=== PATIENT | female | born 1980 | race American Indian/Alaskan Native ===

== ENCOUNTER 2020-01-28 18:00 | Emergency (ER) | payer SELFPAY ==
[2020-01-28] MEDS ORDERED: IBUPROFEN 600 MG TAB PO ONE (18:24)
[2020-01-28] MEDS ORDERED: LIDOCAINE (2%) 20 MG/1 ML VIAL 20 ML MDV INFILTRATI ONE ×2 (18:24→21:32)
--- NOTE | 2020-01-28 18:24 | Event Note ---
ED Screening Note ED Screening Note: large abscess back of neck needs I/D tachy in triage- low grade fever ro sepsis pmh htn on hctz This initial assessment/diagnostic orders/clinical plan/treatment(s) is/are subject to change based on patients health status, clinical progression and re- assessment by fellow clinical providers in the ED. Further treatment and workup at subsequent clinical providers discretion. Patient/guardian urged not to elope from the ED as their condition may be serious if not clinically assessed and managed. Initial orders include: I/D IV fluids/rocephin basic labs
[2020-01-28] MEDS ORDERED: SODIUM CHLORIDE 0.9% 1000 ML 1,000 ML IV ONE (18:25)
[2020-01-28] MEDS ORDERED: cefTRIAXone/NS 1 GM/50 ML 1 GM/50 ML BAG IV ONE (18:25)
[2020-01-28 19:12] LABS: Basophils % (Auto) 0.4 % (0.0-1.8); Eosinophils # (Auto) 0.1 K/mm3 (0.0-0.4); Eosinophils % (Auto) 0.4 % (0.0-4.3); Hematocrit 41.6 % (30.3-42.9); Hemoglobin 13.1 gm/dl (10.1-14.3); Lymphocytes # (Auto) 0.8 K/mm3 (1.2-5.4); Lymphocytes % (Auto) 6.7 % (13.4-35.0); Mean Corpuscular HGB Conc 32 % (30-34); Mean Corpuscular Volume 82 fl (79-97); Monocytes # (Auto) 0.7 K/mm3 (0.0-0.8); Monocytes % (Auto) 5.5 % (0.0-7.3); Platelet Count 340 K/mm3 (140-440); Red Blood Count 5.11 M/mm3 (3.65-5.03); Red Cell Distribution Width 17.6 % (13.2-15.2)
[2020-01-28 19:16] LABS: BUN/Creatinine Ratio 13; Blood Urea Nitrogen 10 mg/dL (7-17); Calcium 9.6 mg/dL (8.4-10.2); Hemolysis Index 13
[2020-01-28] MEDS ORDERED: MORPHINE 4 MG/1 ML INJ IV ONE (19:56)
[2020-01-28] MEDS ORDERED: KETOROLAC 30 MG/1 ML INJ IV ONE (19:56)
[2020-01-28] MEDS ORDERED: SODIUM CHLORIDE 0.9% 1000 ML 2,000 ML IV ONE (19:56)
[2020-01-28] MEDS ORDERED: ACETAMINOPHEN 325 MG TAB PO ONE (19:57)
--- NOTE | 2020-01-28 19:58 | Emergency Department Report ---
ED General Adult HPI - General Chief complaint: Skin/Abscess/Foreign Body Stated complaint: LFT SIDE NECK KNOT/PAIN Time Seen by Provider: 01/28/20 18:24 Source: patient, RN notes reviewed Mode of arrival: Ambulatory Limitations: No Limitations - History of Present Illness Initial comments: The patient is a 39-year-old female. She is not known to myself previously. She is quite certain that she is not . She denies coronavirus symptoms. She presents to the ER today with a complaint of left posterior paramidline skin swelling, pain, suspicious for abscess. She states that she developed a skin bump a few weeks ago. She was reluctant to come in and seek emergency medical attention secondary to the current coronavirus situation. She reports that she had leftover antibiotics from a dental infection, she took these antibiotics which somewhat improved her pain and swelling, and now her pain and swelling is getting worse. There is no complaint of headache, midline neck pain, chest pain, abdominal pain or shortness of breath. She has left posterior paracervical pain, induration, and an obvious abscess. -: week(s) Location: neck Radiation: non-radiation Severity scale (0 -10): 0 Quality: aching Consistency: constant Improves with: rest Worsens with: movement - Related Data Previous Rx's Medication Instructions Recorded Last Taken Type Acetaminophen [Tylenol] 325 mg PO Q4HR PRN #30 capsule 01/28/20 Unknown Rx Clindamycin [Clindamycin CAP] 300 mg PO Q6H #28 capsule 01/28/20 Unknown Rx Ibuprofen [Motrin] 400 mg PO Q8H PRN #30 tablet 01/28/20 Unknown Rx Allergies Allergy/AdvReac Type Severity Reaction Status Date / Time No Known Allergies Allergy Verified 01/28/20 18:22 ED Review of Systems ROS: Stated complaint: LFT SIDE NECK KNOT/PAIN Other details as noted in HPI Constitutional: denies: fever, malaise, weakness Eyes: denies: eye discharge ENT: denies: congestion Respiratory: denies: wheezing Cardiovascular: denies: chest pain Gastrointestinal: denies: abdominal pain Genitourinary: denies: dysuria Musculoskeletal: myalgia Skin: lesions Psychiatric: anxiety Hematological/Lymphatic: denies: easy bleeding ED Past Medical Hx - Past Medical History Previous Medical History?: Yes Hx Hypertension: Yes - Surgical History Past Surgical History?: No - Medications Home Medications: Home Medications Medication Instructions Recorded Confirmed Last Taken Type Acetaminophen [Tylenol] 325 mg PO Q4HR PRN #30 capsule 01/28/20 Unknown Rx Clindamycin [Clindamycin CAP] 300 mg PO Q6H #28 capsule 01/28/20 Unknown Rx Ibuprofen [Motrin] 400 mg PO Q8H PRN #30 tablet 01/28/20 Unknown Rx ED Physical Exam - General Limitations: No Limitations General appearance: alert, anxious - Head Head exam: Present: atraumatic, normocephalic - Eye Eye exam: Present: normal appearance, EOMI. Absent: nystagmus - ENT ENT exam: Present: normal exam, normal orophraynx, mucous membranes moist, normal external ear exam, other (On the left posterior paracervical neck, there is an obvious abscess, with fluctuance, approximately 3 x 3 cm, with surrounding induration. There is left posterior cervical adenopathy. The neck is supple. Patient is speaking in full sentences. There is no stridor or dysphonia.) - Neck Neck exam: Present: normal inspection, tenderness (Left posterior paracervical abscess is tender. There is surrounding induration which is also tender), full ROM, lymphadenopathy - Respiratory Respiratory exam: Present: normal lung sounds bilaterally. Absent: respiratory distress - Cardiovascular Cardiovascular Exam: Present: normal rhythm, tachycardia, normal heart sounds. Absent: systolic murmur, diastolic murmur, rubs, gallop - GI/Abdominal GI/Abdominal exam: Present: soft. Absent: distended, tenderness, guarding, rebound, rigid, pulsatile mass - Extremities Exam Extremities exam: Present: normal inspection, full ROM, other (2+ pulses noted in the bilateral upper and lower extremities. There is no palpable cord. negative Homans sign. Muscular compartments are soft. The pelvis is stable.). Absent: pedal edema, calf tenderness - Back Exam Back exam: Present: normal inspection, full ROM. Absent: tenderness, CVA tenderness (R), CVA tenderness (L), paraspinal tenderness, vertebral tenderness - Neurological Exam Neurological exam: Present: alert, oriented X3, other (There is no facial droop. The tongue is midline. Extraocular movements are intact bilaterally. There is 5 out of 5 strength in bilateral upper and lower extremities. Sensation is intact to light touch bilateral upper and lower extremities. There is a normal gait.). Absent: motor sensory deficit - Psychiatric Psychiatric exam: Present: anxious - Skin Skin exam: Present: warm ED Course Vital Signs 01/28/20 01/28/20 01/28/20 18:22 20:17 20:18 Temperature 99.2 F Pulse Rate 143 H 110 H Respiratory 18 18 14 Rate Blood Pressure Blood Pressure 120/94 [Left] O2 Sat by Pulse 100 99 Oximetry 01/28/20 01/28/20 01/28/20 20:19 20:20 20:48 Temperature Pulse Rate Respiratory 18 18 Rate Blood Pressure Blood Pressure [Left] O2 Sat by Pulse 99 Oximetry 01/28/20 21:00 Temperature Pulse Rate 94 H Respiratory 13 Rate Blood Pressure 135/90 Blood Pressure [Left] O2 Sat by Pulse 99 Oximetry - Reevaluation(s) Reevaluation #1: 01/28/20 20:41 Differential diagnosis, including but not limited to: Cellulitis, abscess, soft tissue skin infection with extension into deep space neck structures Assessment and plan: 39-year-old female with low-grade temperature, clinical left-sided paracervical neck abscess, with surrounding induration, adenopathy, suspect cellulitis with abscess. However, prior to incision and drainage, we will obtain objective imaging study to exclude deep space neck involvement. Her tachycardia has improved. Based off of the history and physical, I suspect local abscess and cellulitis, and we do not suspect bacteremia at this point in time. Elevated lactic acid is reviewed and appreciated. Tachycardia is improving. We will reassess. Reevaluation #2: 01/28/20 21:51 Patient reassessed. Tachycardia resolved. Heart rate 95 bpm. Feels much improved. CT scan shows neck abscess, without deep extension. This was drained to be a simple incision and drainage, please see the procedure note. I then dressed the patient's abscess site. We discussed wound care, and return precautions. She feels improved. She will be discharged on appropriate antibiotics. Return precautions are reviewed. She states she is reliable to follow-up. - I & D Left Posterior Lateral Neck Type of Procedure: Simple Blade Size: 11 I & D Procedure: betadine prep Progress: Patient gave verbal informed consent for incision and drainage of left posterior lateral abscess incision and drainage. She was placed in the prone position, and the site was prepped with Betadine. With typical aseptic technique, 5 cc of 2% lidocaine with epinephrine were infiltrated onto the superior aspect of the abscess. Then, using an 11 blade, a stab incision was made at the point of maximal fluctuance, and extended for approximately 0.5 cm. Immediate return of pus is obtained. We expressed approximately 30 to 40 cc of purulent material. After this, the fluctuance resolved, and the patient symptoms markedly improved. A dressing was applied, and the patient tolerated the procedure well. Estimated blood loss, approximately 5 cc. ED Medical Decision Making - Lab Data Result diagrams: 01/28/20 18:47 01/28/20 18:47 Vital Signs 01/28/20 01/28/20 01/28/20 18:22 20:17 20:18 Temperature 99.2 F Pulse Rate 143 H 110 H Respiratory 18 18 14 Rate Blood Pressure 120/94 [Left] O2 Sat by Pulse 100 99 Oximetry 01/28/20 01/28/20 20:19 20:20 Temperature Pulse Rate Respiratory 18 18 Rate Blood Pressure [Left] O2 Sat by Pulse Oximetry Lab Results 01/28/20 01/28/20 01/28/20 Range/Units 18:47 18:47 18:47 WBC 12.7 H (4.5-11.0) K/mm3 RBC 5.11 H (3.65-5.03) M/mm3 Hgb 13.1 (10.1-14.3) gm/dl Hct 41.6 (30.3-42.9) % MCV 82 (79-97) fl MCH 26 L (28-32) pg MCHC 32 (30-34) % RDW 17.6 H (13.2-15.2) % Plt Count 340 (140-440) K/mm3 Lymph % (Auto) 6.7 L (13.4-35.0) % [place] % (Auto) 5.5 (0.0-7.3) % Eos % (Auto) 0.4 (0.0-4.3) % Baso % (Auto) 0.4 (0.0-1.8) % Lymph # 0.8 L (1.2-5.4) K/mm3 [place]ardo # 0.7 (0.0-0.8) K/mm3 Eos # 0.1 (0.0-0.4) K/mm3 Baso # 0.0 (0.0-0.1) K/mm3 Seg Neutrophils % 87.0 H (40.0-70.0) % Seg Neutrophils # 11.0 H (1.8-7.7) K/mm3 Sodium 135 L (137-145) mmol/L Potassium 4.0 (3.6-5.0) mmol/L Chloride 97.2 L (98-107) mmol/L Carbon Dioxide 22 (22-30) mmol/L Anion Gap 20 mmol/L BUN 10 (7-17) mg/dL Creatinine 0.8 (0.7-1.2) mg/dL Estimated GFR > 60 ml/min BUN/Creatinine Ratio 13 % Glucose 107 H (65-100) mg/dL Lactic Acid 2.40 H* (0.7-2.0) mmol/L Calcium 9.6 (8.4-10.2) mg/dL - Radiology Data Radiology results: pending, report reviewed, image reviewed Report Referring Physician: CHASE VALENZUELA Patient Name: FLAQUITO ANN Date of : 1980 Sex: Female Report Date: 2020-01-28 Report Status: Finalized Findings [facility] [address] [place] [address] Cat Scan Report Signed Patient: FLAQUITO ANN MR#: [id number] : 1980 Acct:[id number] Age/Sex: 39 / F ADM Date: 01/28/20 Loc: ED Attending Dr: Ordering Physician: CHASE VALENZUELA MD Date of Service: 01/28/20 Procedure(s): CT neck w con Accession Number(s): [id number] cc: CHASE VALENZUELA MD CT neck w con INDICATION / CLINICAL INFORMATION: 39 years Female; MAIN: neck pain swelling 100cc of omnipaque 300 . TECHNIQUE: Contiguous thin cut axial images obtained through the neck following IV contrast. Sagittal and coronal reconstructions performed by the technologist. All CT scans at this location are performed using CT dose reduction for ALARA by means of automated exposure control. COMPARISON: None available. FINDINGS: There is a subcutaneous, largely rim-enhancing fluid collection seen in the left posterolateral neck, dorsal to the trapezius muscle, measuring approximately 3 cm transversely by 2.1 cm AP by 3 cm craniocaudally. Abscess is suspected. The fluid collection extends to the skin surface and presumably could be easily aspirated. Surrounding cellulitic change identified. Reactive left level 5 lymph nodes are noted as well, none of which have a suppurative appearance. MUCOSAL SPACE: The nasopharynx, oropharynx and vallecula, oral cavity and floor of mouth, hypopharynx, and larynx are grossly normal. Mildly prominent palatine and lingual tonsillar tissue seen, which is of no clinical significance. LYMPH NODES: No significant adenopathy appreciated. SALIVARY GLANDS: Parotid, submandibular, and visualized sublingual glands are within normal limits. THYROID GLAND: Unremarkable. PARANASAL SINUSES: Visualized paranasal sinuses and mastoid air cells are essentially clear. SPINE: No significant abnormality of the cervical spine appreciated. Minimal disc disease suggested without significant sequela. VASCULAR STRUCTURES: Vascular structures are grossly normal in appearance. Surrounding soft tissues are otherwise grossly normal. IMPRESSION: 1. Findings consistent with abscess and surrounding cellulitis in the left posterolateral neck, as described above. Signer Name: Timothy Hennessy MD, III Signed: 01/28/2020 9:10 PM Workstation Name: [facility]- [id number] Transcribed By: Dictated By: Timothy Hennessy MD Electronically Authenticated By: Timothy Hennessy MD Signed Date/Time: 01/28/202109 Critical care attestation.: If time is entered above; I have spent that time in minutes in the direct care of this critically ill patient, excluding procedure time. ED Disposition Clinical Impression: Cellulitis and abscess of neck Disposition: DC-01 TO HOME OR SELFCARE Is pt being admited?: No Does the pt Need Aspirin: No Condition: Stable Additional Instructions: Please wash the left-sided neck wound with gentle soap and water once every 12- 24 hours. Apply warm compresses as often as as needed. Take the pain medications as needed and directed. Keep the incision site covered and dry, when not washing it. Take the antibiotics as directed. Do not consume alcohol while taking the medications. Follow-up with your primary care doctor, urgent care center, or return to the emergency room for a wound check in 5 to 7 days. Please return to the emergency room right away with fever, chills, projectile vomiting, change in mental status, confusion, inability to tolerate liquid feeds, new, worsened or different symptoms not present on the initial emergency room evaluation. Referrals: JONI TADEO MD [Staff Physician] - 3-5 Days [facility] [Provider Group] - 3-5 Days
[2020-01-28 21:15] VITALS: BP 135/90
--- NOTE | 2020-01-28 21:15 | Cat Scan Report ---
CT neck w con INDICATION / CLINICAL INFORMATION: 39 years Female; MAIN: neck pain swelling 100cc of omnipaque 300 . TECHNIQUE: Contiguous thin cut axial images obtained through the neck following IV contrast. Sagittal and galvez l reconstructions performed by the technologist. All CT scans at this location are performed using CT dose reduction for ALARA by means of automated exposure control. COMPARISON: None available. FINDINGS: There is a subcutaneous, largely rim-enhancing fluid collection seen in the left posterolat eral neck, dorsal to the trapezius muscle, measuring approximately 3 cm transversely by 2.1 cm AP by 3 cm craniocaudally. Abscess is suspected. The fluid collection extends to the skin surface and presu mably could be easily aspirated. Surrounding cellulitic change identified. Reactive left level 5 lymp h nodes are noted as well, none of which have a suppurative appearance. MUCOSAL SPACE: The nasopharynx, oropharynx and vallecula, oral cavity and floor of mouth, hypopharynx , and larynx are grossly normal. Mildly prominent palatine and lingual tonsillar tissue seen, which i s of no clinical significance. LYMPH NODES: No significant adenopathy appreciated. SALIVARY GLANDS: Parotid, submandibular, and visualized sublingual glands are within normal limits. THYROID GLAND: Unremarkable. PARANASAL SINUSES: Visualized paranasal sinuses and mastoid air cells are essentially clear. SPINE: No significant abnormality of the cervical spine appreciated. Minimal disc disease suggested w ithout significant sequela. VASCULAR STRUCTURES: Vascular structures are grossly normal in appearance. Surrounding soft tissues are otherwise grossly normal. IMPRESSION: 1. Findings consistent with abscess and surrounding cellulitis in the left posterolateral neck, as de scribed above. Signer Name: Timothy Hennessy MD, III Signed: 01/28/2020 9:10 PM Workstation Name: [id number]
[2020-01-28] MEDS ORDERED: LIDOCAINE 2%/EPINEPHRINE 1:100,000 VIAL (20 ML) INFILTRATI ONE (21:33)
== END 2020-01-28 22:31 | disposition home or self-care (01) ==
LOC: ED 18:00
DX: L03.221 Cellulitis of neck (principal); L02.11 Cutaneous abscess of neck; I10 Essential (primary) hypertension; Z79.899 Other long term (current) drug therapy
CPT/HCPCS: 10060; 36415; 70491; 80048; 82140; 82550; 85025; 96374; 96375; 99284; J1885; J2270; J7030; Q9967

== ENCOUNTER 2022-03-01 23:34 | Emergency (ER) | payer SELFPAY ==
--- NOTE | 2022-03-02 00:14 | Emergency Department Report ---
ED General Adult HPI - General Stated complaint: SKIN FLARE UP/BLOOD PRESSURE Source: patient, RN notes reviewed Limitations: No Limitations - History of Present Illness Initial comments: Patient is a 41-year-old -Surinames[place] female with a history of chronic eczema and hypertension who presents to the ED with acute exacerbation of her chronic eczema with diffuse itchy dry erythematous maculopapular rashes. Patient states that she has previously taken prednisone and triamcinolone which helped but over the years her primary care physician change of her medication which do not appear to work anymore. Patient states that the symptoms have worsened especially in the last 2 weeks such that she is unable to sleep. Patient denies dizziness, syncope, chest pain, shortness of breath, nausea and vomiting, fever, chills, nasal and sinus congestion, abdominal pain or change in vision. MD Complaint: diffuse itchy erythematous dry scaly rashes -: Gradual, year(s) (many) Location: neck (Diffuse) Radiation: non-radiation Severity scale (0 -10): 6 Quality: burning Consistency: constant Improves with: none Worsens with: none Associated Symptoms: denies other symptoms, rash (Diffuse itchy erythematous maculopapular rashes). denies: confusion, chest pain, cough, diaphoresis, fever/chills, headaches, loss of appetite, malaise, nausea/vomiting, seizure, shortness of breath, syncope, weakness, other Treatments Prior to Arrival: none - Related Data Previous Rx's Medication Instructions Recorded Last Taken Type Acetaminophen [Tylenol] 325 mg PO Q4HR PRN #30 capsule 01/28/20 Unknown Rx Clindamycin [Clindamycin CAP] 300 mg PO Q6H #28 capsule 01/28/20 Unknown Rx Ibuprofen [Motrin] 400 mg PO Q8H PRN #30 tablet 01/28/20 Unknown Rx Triamcinolone Acetonide 1 applic TP Q12H #1 tube 03/02/22 Unknown Rx [Triamcinolone Acetonide Oint 0.5%] hydrOXYzine PAMOATE [Vistaril] 50 mg PO Q8HR PRN #40 capsule 03/02/22 Unknown Rx predniSONE [Deltasone] 60 mg PO QDAY #21 tab 03/02/22 Unknown Rx Allergies Allergy/AdvReac Type Severity Reaction Status Date / Time No Known Allergies Allergy Verified 01/28/20 18:22 ED Review of Systems ROS: Stated complaint: SKIN FLARE UP/BLOOD PRESSURE Other details as noted in HPI Constitutional: denies: chills, fever Eyes: denies: eye pain, eye discharge, vision change ENT: denies: ear pain, throat pain Respiratory: denies: cough, shortness of breath, wheezing Cardiovascular: denies: chest pain, palpitations Endocrine: no symptoms reported Gastrointestinal: denies: abdominal pain, nausea, diarrhea Genitourinary: denies: urgency, dysuria, discharge Musculoskeletal: denies: back pain, joint swelling, arthralgia Skin: rash (Diffuse itchy erythematous urticarial rashes), change in color, pruritus. denies: lesions Neurological: denies: headache, weakness, paresthesias Psychiatric: denies: anxiety, depression Hematological/Lymphatic: denies: easy bleeding, easy bruising ED Past Medical Hx - Past Medical History Hx Hypertension: Yes Additional medical history: Eczema - Medications Home Medications: Home Medications Medication Instructions Recorded Confirmed Last Taken Type Acetaminophen [Tylenol] 325 mg PO Q4HR PRN #30 capsule 01/28/20 Unknown Rx Clindamycin [Clindamycin CAP] 300 mg PO Q6H #28 capsule 01/28/20 Unknown Rx Ibuprofen [Motrin] 400 mg PO Q8H PRN #30 tablet 01/28/20 Unknown Rx Triamcinolone Acetonide 1 applic TP Q12H #1 tube 03/02/22 Unknown Rx [Triamcinolone Acetonide Oint 0.5%] hydrOXYzine PAMOATE [Vistaril] 50 mg PO Q8HR PRN #40 capsule 03/02/22 Unknown Rx predniSONE [Deltasone] 60 mg PO QDAY #21 tab 03/02/22 Unknown Rx ED Physical Exam - General General appearance: alert, in no apparent distress - Head Head exam: Present: atraumatic, normocephalic, normal inspection - Eye Eye exam: Present: normal appearance, PERRL, EOMI Pupils: Present: normal accommodation - ENT ENT exam: Present: normal exam, normal orophraynx, mucous membranes moist, TM's normal bilaterally, normal external ear exam - Neck Neck exam: Present: normal inspection, full ROM. Absent: tenderness - Respiratory Respiratory exam: Present: normal lung sounds bilaterally. Absent: respiratory distress, wheezes, rales, rhonchi, chest wall tenderness, accessory muscle use - Cardiovascular Cardiovascular Exam: Present: regular rate, normal rhythm, normal heart sounds. Absent: systolic murmur, diastolic murmur, rubs, gallop - GI/Abdominal GI/Abdominal exam: Present: soft, normal bowel sounds. Absent: tenderness, guarding, rebound, hyperactive bowel sounds, hypoactive bowel sounds, organomegaly, mass - Extremities Exam Extremities exam: Present: normal inspection, full ROM, normal capillary refill. Absent: tenderness - Back Exam Back exam: Present: normal inspection, full ROM. Absent: tenderness, CVA tenderness (R), CVA tenderness (L), muscle spasm, paraspinal tenderness, vertebral tenderness - Neurological Exam Neurological exam: Present: alert, oriented X3, CN II-XII intact, normal gait, reflexes normal - Psychiatric Psychiatric exam: Present: normal affect, normal mood - Skin Skin exam: Present: warm, dry, intact, normal color, rash (Diffuse erythematous maculopapular urticarial rashes), erythema, urticaria. Absent: cyanosis, petechiae, abrasion, ecchymosis, other ED Course Vital Signs 03/02/22 00:05 Temperature 98.3 F Pulse Rate 110 H Respiratory 18 Rate Blood Pressure 207/119 O2 Sat by Pulse 100 Oximetry ED Medical Decision Making - Medical Decision Making This is a 41-year-old -Surinamese female with a history of chronic eczema and hypertension who presents to the ED with acute exacerbation of her chronic eczema with diffuse itchy dry erythematous maculopapular rashes. Patient states that she has previously taken prednisone and triamcinolone which helped but over the years her primary care physician change of her medication which do not appear to work anymore. Patient states that the symptoms have worsened especially in the last 2 weeks such that she is unable to sleep. In the ED, patient is alert and oriented x3 and is not in distress. Patient is however anxious and tachycardic in triage. Patient was discharged home on medications including oral prednisone and triamcinolone acetonide ointments for her chronic eczema. On reevaluation, patient's tachycardia resolved and patient felt better. Patient will discharge home and advised to follow-up with her primary care physician in 7 to 10 days for reevaluation or return to the ED immediately if symptoms get worse. - Differential Diagnosis Chronic eczema; irritant dermatitis; chronic atopic dermatitis Critical care attestation.: If time is entered above; I have spent that time in minutes in the direct care of this critically ill patient, excluding procedure time. ED Disposition Clinical Impression: Chronic eczema, Itching with irritation Disposition: HOME / SELF CARE / HOMELESS Is pt being admited?: No Does the pt Need Aspirin: No Condition: Stable Instructions: Pruritus, Eczema Additional Instructions: Take medication as advised, drink plenty of fluids and follow-up with your primary care physician in 7 to 10 days for reevaluation. Return to the ED immediately if symptoms get worse. Prescriptions: predniSONE [Deltasone] 60 mg PO QDAY #21 tab Triamcinolone Acetonide [Triamcinolone Acetonide Oint 0.5%] 1 applic TP Q12H #1 tube hydrOXYzine PAMOATE [Vistaril] 50 mg PO Q8HR PRN #40 capsule PRN Reason: Itching Referrals: [facility] [Provider Group] - 3-5 Days Time of Disposition: 00:15 Print Language: CAMBOD[place]
[2022-03-02 06:46] VITALS: BP 160/109
== END 2022-03-02 01:54 | disposition home or self-care (01) ==
LOC: ED 23:34
DX: L30.9 Dermatitis, unspecified (principal); D71 Functional disorders of polymorphonuclear neutrophils; L29.9 Pruritus, unspecified; I10 Essential (primary) hypertension
CPT/HCPCS: 99282